=== PATIENT | female | born 1975 | race Hispanic/Latino ===

== ENCOUNTER 2019-01-09 01:35 | Emergency (ER) | payer BC ==
[2019-01-09 01:50] VITALS: O2SAT 98
[2019-01-09] MEDS ORDERED: Sodium Chloride 0.9% 1,000 ML IV STA (02:36)
--- NOTE | 2019-01-09 02:38 | ED PDOC ---
HPI: General Adult Time Seen by Provider: 01/09/19 02:18 Chief Complaint (Nursing): GI Problem Chief Complaint (Provider): ABDOMINAL PAIN/VOMITING/DIARRHEA History Per: Patient (43 Y/O FEMALE RECENT MISCARRIAGE 3 WEEKS AGO WITH PERSISTENT BLEEDING UNTIL 1 WEEK AGO HERE WITH V/D/CRAMPY LOWER ABD PAIN ASSOCIATED WITH VAGINAL SPOTTING.) Past Medical History Reviewed: Historical Data, Nursing Documentation, Vital Signs Vital Signs: Last Vital Signs Temp 98.6 F 01/09/19 01:41 Pulse 96 H 01/09/19 01:41 Resp 18 01/09/19 01:41 BP 144/110 H 01/09/19 01:41 Pulse Ox 98 01/09/19 01:41 - Family History Family History: States: No Known Family Hx - Home Medications Home Medications: Ambulatory Orders Medication Instructions Recorded Famotidine [Pepcid] 20 mg PO BID #10 tab 01/09/19 Ondansetron ODT [Zofran ODT] 4 mg PO Q8 PRN #3 odt 01/09/19 - Allergies Allergies/Adverse Reactions: Allergies Allergy/AdvReac Type Severity Reaction Status Date / Time Penicillins Allergy DIARRHEA Verified 01/09/19 01:41 Review of Systems ROS Statement: Except As Marked, All Systems Reviewed And Found Negative Physical Exam - Reviewed Nursing Documentation Reviewed: Yes Vital Signs Reviewed: Yes - Physical Exam Appears: Positive for: Well, Non-toxic, No Acute Distress Head Exam: Positive for: ATRAUMATIC, NORMAL INSPECTION, NORMOCEPHALIC Skin: Positive for: Normal Color, Warm, DRY Eye Exam: Positive for: EOMI, Normal appearance, PERRL ENT: Positive for: Normal ENT Inspection Neck: Positive for: Normal, Painless ROM Cardiovascular/Chest: Positive for: Regular Rate, Rhythm Respiratory: Positive for: CNT, Normal Breath Sounds Gastrointestinal/Abdominal: Positive for: Normal Exam, Soft Back: Positive for: Normal Inspection Extremity: Positive for: Normal ROM Neurological/Psych: Positive for: Awake, Alert, Normal Tone - Laboratory Results Result Diagrams: 01/09/19 02:50 01/09/19 02:50 Urine POC: Positive - ECG O2 Sat by Pulse Oximetry: 98 - Progress ED Course And Treament: NS 1 LITER WIDE OPEN PATIENT REFUSED PEPCID/ZOFRAN. D/W HER BHCG 500 AND THAT SHE SHOULD F/U WITH [employer] [employer] IN 2 DAYS FOR REPEAT BLOODWORK. Disposition - Clinical Impression Clinical Impression: Gastroenteritis - Patient ED Disposition Is Patient to be Admitted: No - Disposition Disposition: Routine/Home Disposition Time: 04:38 Condition: FAIR Prescriptions: Famotidine [Pepcid] 20 mg PO BID #10 tab Ondansetron ODT [Zofran ODT] 4 mg PO Q8 PRN #3 odt PRN Reason: Nausea/Vomiting Instructions: Viral Gastroenteritis, Adult (DC)
[2019-01-09 03:11] LABS: BASO % 0.4 % (0.0-2.0); EOS % 0.3 % (0.0-4.0); HEMOGLOBIN 12.6 g/dL (12.0-16.0); LYMPH # 0.4 K/uL (1.0-4.3); LYMPH % 4.6 % (20.0-40.0); MEAN CELL VOLUME 92.2 fl (81.0-99.0); MEAN CORPUSCULAR HEMOGLOBIN 30.3 pg (27.0-31.0); MEAN CORPUSCULAR HGB CONC 32.8 g/dL (33.0-37.0); MEAN PLATELET VOLUME 9.5 fl (7.2-11.7); MONO # 0.3 K/uL (0.0-0.8); MONO % 3.2 % (0.0-10.0); NEUT # 8.4 K/uL (1.8-7.0); NEUT % 91.5 % (50.0-75.0); PLATELET COUNT 164 K/uL (130-400); RBC 4.16 Mil/uL (3.80-5.20); RED CELL DISTRIBUTION WIDTH 13.4 % (11.5-14.5); WHITE BLOOD COUNT 9.2 K/uL (4.8-10.8)
[2019-01-09 03:22] LABS: BLOOD UREA NITROGEN 17 mg/dl (7-17); GFR NON-AFRICAN AMERICAN > 60
[2019-01-09 03:23] LABS: ALB/GLOB RATIO 1.7 (1.0-2.1); ALBUMIN 4.4 g/dL (3.5-5.0); ALT/SGPT 24 U/L (9-52); AST/SGOT 33 U/L (14-36)
[2019-01-09 04:39] LABS: BANDS 2 % (0-2); LYMPHOCYTE 5 % (20-50); MONOCYTE 2 % (0-10); NEUTROPHIL 91 % (42-75); PLATELET ESTIMATE NORMAL (NORMAL); TOTAL CELLS COUNTED 100
[2019-01-09 04:41] LABS: ANISOCYTOSIS SLIGHT; HYPOCHROMIC SLIGHT
[2019-01-09 04:50] VITALS: BP 113/59; PULSE 73; RESP 16; TEMP 98.5
== END 2019-01-09 05:10 | disposition home or self-care (01) ==
LOC: H.ER 01:35
DX: K52.9 Noninfective gastroenteritis and colitis, unspecified (principal); Z88.0 Allergy status to penicillin
CPT/HCPCS: 80053; 81025; 83735; 84702; 85025; 96360; 99284; J7030